=== PATIENT | male | born 1955 | race Caucasian/White ===

== ENCOUNTER 2020-11-26 08:27 | Outpatient (CLI) | payer MEDICARE, SELFPAY ==
--- NOTE | 2020-12-11 22:22 | WPDHOMESLEEP ---
Sleep Study - Home Unattended Date of Study: 11/26/20 Ordering Provider: Dipak Cano MD Interpreting Provider: Lorie Salguero MD Home Sleep Study Type: Apnea Link Air Height: 1.83 m Weight: 95.254 kg Body Mass Index: 28.5 Neck Circumference (inches): 13.75 [place]: 15 Reason for Sleep Study hypersomnolence Sleep History Jayashree Velasquez is a 65 year old man with difficulty falling asleep and staying asleep. He has dreams on most nights. His partner notices that he snores loudly and breathes with his mouth open. He has fatigue during the day. He does not Awaken from sleep feeling short of breath. He occasionally awakens at night with heartburn, belching or coughing. He does not have trouble sleeping with a cold. He does not wake up gasping for breath during the night. He rarely has breathing problems at night observed by others. He does not sweat excessively at night or notices his heart pounding or beating irregularly at night. He frequently falls asleep during the day. He does not fall asleep involuntarily or while driving. He does not fall asleep while exerting physical effort. He does not have loss of muscle tone with strong emotion. He occasionally has daytime difficulties due to excessive sleepiness. He does not feel paralyzed on waking or falling asleep. He does not have vivid dreamlike scenes upon awakening or falling asleep. He does not feel afraid to go to sleep. He does not have nightmares. He occasionally remembers his dreams. He frequently has racing thoughts. He rarely feels sad or depressed. He occasionally feels anxiety. He occasionally has muscular tension. He does not notice parts of his body jerking. He does not kick at night. He does not have crawling or aching feelings in his legs. He does not have any kind of leg pain at night. He does not have morning jaw pain. He frequently grinds his teeth during sleep. He does not bothered by pain during the day. He occasionally has awakened by pain at night. He does not wake up feeling stiff in the morning. He occasionally wakes up with sore achy muscles. He occasionally wakes up with pain in the neck and spine. He has headaches, fatigue and takes antacids regularly. Normal bedtime is 10:30 p.m. falling asleep within a few minutes. Sometimes he wakes during the night and stays awake about 10 minutes. He wakes the morning at 5:00 a.m.. His weekend schedule is the same. He estimates getting 6 hours or sometimes fewer hours of sleep most nights. He takes short naps in the afternoon or evenings. A short nap may be refreshing. HE is drowsy in the morning for 3 hours or longer. He rarely awakens feelinf refreshed. Habits: Never smoked tobacco. Caffeine: 2 cups coffee and 2 cups tea daily. Alcohol: one beer every other day. No recreational drugs. [facility] Past Medical History Medical History Allergic rhinitis due to pollen BMI 29.0-29.9,adult COVID-19 Generalized anxiety disorder Osteoarthritis of left knee Other hyperlipidemia Prediabetes Surgical History Surgical History History of total left knee replacement Hx of right knee surgery arthroscopic, Dr. Issa 2014 Family History Family History Other Carcinoma of colon Diabetes mellitus Family history of allergic disorder Family history of cardiovascular disease Family history of malignant neoplasm Family history of malignant neoplasm of breast Social History Social History Smoking status: Never smoker Alcohol intake: current Alcohol use details: occasional Gender identity (if verbalized by the patient): Male Medications Home Medications Medication Instructions Recorded Confirmed Type atorvastatin 10 mg tablet 10 mg PO DAILY #90 tabl
[2020-12-11 22:41] VITALS: BMI 28.5
== END 2020-11-27 08:19 | disposition home or self-care (01) ==
LOC: ANHCSM 08:28
PROVIDERS: PCP Family Medicine; Visit Provider Family Medicine
DX: G47.33 Obstructive sleep apnea (adult) (pediatric) (principal)
CPT/HCPCS: 95806

== ENCOUNTER 2021-05-20 10:44 | Outpatient (CLI) | payer MEDICARE, SELFPAY ==
--- NOTE | ~2021-05-20 | XR_ITS ---
EXAMINATION: XR chest 2V DATE: 05/20/2021 11:02 INDICATION: Shortness of breath. TECHNIQUE: Frontal and lateral views of the chest were obtained. COMPARISON: None. FINDINGS: The chest demonstrates clear lungs without pneumonia, pleural effusion, or pneumothorax. Th e heart size is normal. IMPRESSION: 1. No acute cardiopulmonary disease. Reviewed, dictated and finalized at location B. TAPE OPERATOR
== END 2021-05-20 10:45 | disposition home or self-care (01) ==
PROVIDERS: PCP Family Medicine; Visit Provider Internal Medicine Critical Care Medicine
DX: R06.02 Shortness of breath (principal)
CPT/HCPCS: 71046

== ENCOUNTER 2021-06-18 07:46 | Outpatient (CLI) | payer MEDICARE, SELFPAY ==
--- NOTE | 2021-06-19 15:50 | WPDPFTINT ---
PFT Procedure Performed PFT Procedure Performed Spirometry with Pre/Post Bronchodilator Plethysmography (Lung Vol) Diffusing Cap (DLCO) Flow Vol Loop PFT Interpretation DOS: REQUESTING: Dr Salguero REASON FOR TESTING: Shortness of breath PULMONARY FUNCTION TESTS Results are reliable and reproducible. Spirometry: FEV1 is 108% predicted before bronchodilator, 3.87L. FVC is 110%. Both are normal values. The slow vital capacity is slightly higher than the forced vital capacity. Using the slow vital capacity to calculate the FEV1%, FEV1 is lower at 68% consistent with airflow obstruction. The QUK53-41% is 103% predicted. After bronchodilator, there is no significant change in FEV1 or FVC. The KHA99-72% increases 53%. Lung volumes: Total lung capacity is 137%, increased, consistent with mild hyperinflation. Residual volume is 183% consistent with severe air trapping. Increased RV/TLC. Airway resistance is normal. Diffusion: DLCO is 111%, normal. Flow volume loop: Normal. There is only one complete flow volume loop and it is of normal configuration. IMPRESSION: Mild obstructive ventilatory pattern with mild hyperinflation and severe air trapping, normal diffusion. There is a excellent response to bronchodilator in the small airways. In the proper clinical scenario, this may represent asthma. Lorie Salguero MD
== END 2021-06-18 07:47 | disposition home or self-care (01) ==
LOC: ANHPFT 07:47
PROVIDERS: PCP Family Medicine; Visit Provider Internal Medicine Critical Care Medicine
DX: R06.02 Shortness of breath (principal); R94.2 Abnormal results of pulmonary function studies
CPT/HCPCS: 94060; 94726; 94729

== ENCOUNTER 2021-09-04 07:31 | Outpatient (CLI) | payer MEDICARE, SELFPAY ==
--- NOTE | 2021-09-10 13:09 | WPDHOMESLEEP ---
Sleep Study - Home Unattended Date of Study: 09/04/21 Ordering Provider: Lorie Salguero MD Interpreting Provider: Aundrea Toney, DO Home Sleep Study Type: Watch RIO Height: 1.83 m Weight: 95.254 kg Body Mass Index: 28.5 Neck Circumference (inches): 16 Armstrong: 9 Reason for Sleep Study The patient has known KRISTINA and is currently using a mandibular advancement device. Sleep History The patient had a home sleep test on November 26, 2020 that showed an AHI of 15. The patient had a mandibular advancement device made by Dr. Gavin and has had less daytime somnolence. The patient occasionally awakens from sleep short of breath. He occasionally awakens at night with heartburn, belching or cough. He occasionally snores loud enough that others complain. He denies waking up gasping for air throughout the night. He rarely has breathing problems at night observed by himself or others. He denies sweating excessively at night. He rarely has heart palpitations or irregular heartbeats during the night. He occasionally falls asleep during the day but never while driving. He denies sleep paralysis and cataplexy. He rarely experiences vivid dreamlike scenes upon awakening or falling asleep. He denies having nightmares. He frequently remembers his dreams. He frequently has thoughts racing through his mind. He rarely feels sad or depressed. He occasionally has anxiety. He rarely has muscular tension. He rarely notices parts of his body jerk. He occasionally kicks during the night. He rarely has crawling and aching feelings in his legs as well as leg pain during the night. He rarely grinds his teeth during sleep and denies awakening with morning jaw pain. He denies being bothered by pain during the day and being awakened by pain during the night. He occasionally wakes up feeling stiff in the morning. He occasionally wakes with sore achy muscles. He occasionally wakes up with pain in the neck, spine or other joints. He goes to bed at 10:30 p.m. on both weekdays and weekends. It takes him 5 minutes to fall asleep. He wakes up 3 times throughout the night for unknown reasons. When he awakens, he would get up and sit in a chair. Says it will take him over an hour to fall asleep at times. He wakes up at 5:00 a.m. on both weekdays and weekends. He typically gets 6 hours of sleep per night. He will stay in bed for a few minutes after waking up in the morning. He currently lives with his . He does not consume any caffeinated beverages within 2 hours of bedtime. He does not engage in physical exercise before bedtime. He will watch television before falling asleep. He will take naps in the afternoon or the evening and they are refreshing. He drinks 2 cups of coffee per day. He will have 1 beer per day. He denies tobacco and recreational drug use. [facility] Past Medical History Medical History Allergic rhinitis due to pollen Asthma BMI 29.0-29.9,adult COVID-19 Generalized anxiety disorder Obstructive sleep apnea Osteoarthritis of left knee Other hyperlipidemia Prediabetes Rhinitis Surgical History Surgical History History of total left knee replacement Hx of right knee surgery arthroscopic, Dr. Issa 2014 Family History Family History Other Carcinoma of colon Diabetes mellitus Family history of allergic disorder Family history of cardiovascular disease Family history of malignant neoplasm Family history of malignant neoplasm of breast Social History Social History Smoking status: Never smoker Alcohol intake: current Alcohol use details: occasional Gender identity (if verbalized by the patient): Male Medications Home Medications Medication Instructions Record
[2021-09-10 13:22] VITALS: BMI 28.5
== END 2021-09-05 14:11 | disposition home or self-care (01) ==
PROVIDERS: Visit Provider Internal Medicine Critical Care Medicine
DX: G47.33 Obstructive sleep apnea (adult) (pediatric) (principal)
CPT/HCPCS: 95800

== ENCOUNTER 2021-12-07 12:37 | Outpatient (CLI) | payer MEDICARE, SELFPAY ==
--- NOTE | ~2021-12-07 | XR_ITS ---
EXAM: XR abdomen/kub 1V DATE: 12/07/2021 12:52 HISTORY: LLQ PAIN X1 WEEK WITH NAUSEA . COMPARISON: None available. FINDINGS: Clear lung bases. Normal bowel gas pattern. No organomegaly. No abnormal abdominal calcifi cation. Degenerative changes in the spine, otherwise the bones and soft tissues normal for age. IMPRESSION: No radiographic evidence of obstruction or ileus. Reviewed, dictated and finalized at location K.
--- NOTE | ~2021-12-07 | CT_ITS ---
EXAMINATION: CT abdomen pelvis wo con DATE: 12/07/2021 13:12 INDICATION: Left lower quadrant abdominal pain. TECHNIQUE: Computed tomography (CT) of the abdomen and pelvis was performed without intravenous contr ast. Automated exposure control and iterative reconstruction technique were employed. The dose-length product was 934.06 mGy-cm. COMPARISON: None. FINDINGS: The visualized portions of the lung bases demonstrate mild atelectasis. No pleural effusion . The heart size is normal. No pericardial effusion. There are coronary artery calcifications. The li hailey and gallbladder are normal. Calcifications in the spleen are consistent with old granulomatous di sease. The pancreas, adrenal glands, and kidneys are normal. There are scattered diverticula in the c olon. There is fat stranding around a diverticulum of the junction of descending and sigmoid colon, c onsistent with diverticulitis. The appendix is normal. There are no dilated loops of bowel. There is an umbilical hernia containing fat. There are no pathologically enlarged lymph nodes. There is no arlette e intraperitoneal fluid. There is severe lumbar spondylosis. IMPRESSION: 1. Diverticulitis of descending/sigmoid colon. No perforation or abscess. Reviewed, dictated and finalized at location A.
== END 2021-12-07 12:38 | disposition home or self-care (01) ==
PROVIDERS: PCP Family Medicine; Visit Provider Nurse Practitioner Adult Health
DX: R10.32 Left lower quadrant pain (principal); K57.32 Diverticulitis of large intestine without perforation or abscess without bleeding
CPT/HCPCS: 74018; 74176

== ENCOUNTER 2023-05-25 09:44 | Outpatient (CLI) | payer MEDICARE, SELFPAY ==
--- NOTE | ~2023-05-25 | XR_ITS ---
Right Hand Technique: PA, oblique, and lateral views were obtained. Clinical History: Pain Findings: No acute fracture or dislocation is seen. Osseous alignment is anatomic. Joint spaces are p reserved. Soft tissues are unremarkable. Impression: Unremarkable right hand. Reviewed, dictated and finalized at location M. RAL FABRICATOR Impression: Unremarkable right hand.
== END 2023-05-25 09:45 | disposition home or self-care (01) ==
PROVIDERS: PCP Family Medicine; Visit Provider Orthopaedic Surgery
DX: M79.641 Pain in right hand (principal)
CPT/HCPCS: 73130

== ENCOUNTER 2023-12-09 09:19 | Outpatient (CLI) | payer MEDICARE, SELFPAY ==
[2023-12-09 20:24] LABS: Basophils Percent Auto 0.7 % (0.2-1.2); Eosinophils Absolute Auto 0.2 K/mm3 (0-0.3); Eosinophils Percent Auto 4.3 % (0-4.4); Hematocrit 41.3 % (42.0-52.0); Hemoglobin 13.7 g/dL (14.0-18.0); Immature Granulocyte Absolute 0.01 K/mm3 (0.00-0.031); Immature Granulocyte Percent A 0.2 % (0-0.5); Lymphocytes Absolute Auto 1.88 K/mm3 (0.9-3.2); Lymphocytes Percent Auto 33.9 % (18.3-44.2); Mean Corpuscular HGB Conc 33.2 g/dl (32-36); Mean Corpuscular Hemoglobin 29.8 pg (26-34); Mean Platelet Volume 9.7 fl (7.4-10.4); Monocytes Absolute Auto 0.3 K/mm3 (0.1-0.6); Monocytes Percent Auto 5.6 % (2.6-8.5); Neutrophils Absolute Auto 3.1 K/mm3 (1.3-6.7); Neutrophils Percent Auto 55.3 % (45.5-73.1); Platelet Count Result 213 k/mm3 (150-375); Red Blood Count 4.59 M/mm3 (4.6-6.20); Red Cell Distribution Width 13.5 % (11.5-14.5); White Blood Count 5.5 K/mm3 (4.5-10.0)
[2023-12-09 20:27] LABS: Alanine Aminotransferase 25 U/L (6-50); Albumin Level 4.5 g/dL (3.5-5.1); Alkaline Phosphatase 57 U/L (38-126); Anion Gap 7 mmol/L (4-12); Aspartate Amino Transferase 47 U/L (17-59); Bilirubin,Total 0.8 mg/dL (0.2-1.3); Blood Urea Nitrogen 25 mg/dL (9-20); Calcium 9.2 mg/dL (8.4-10.2); Carbon Dioxide 32 mmol/L (22-30); Chloride 101 mmol/L (98-107); Cholesterol 193 mg/dL (0-200); Estimated Glomerular Filt Rate > 60; Glucose 99 mg/dL (65-110); HDL Direct 58 mg/dL; Potassium 4.3 mmol/L (3.4-5.0); Sodium 140 mmol/L (137-145); Triglycerides 91 mg/dL (<150)
[2023-12-09 20:39] LABS: LDL Cholesterol Direct 110 mg/dL
[2023-12-09 20:53] LABS: Prostate Specific Antigen 0.9 ng/mL (< OR = 4.0)
[2023-12-09 22:03] LABS: Hemoglobin A1C 5.8 % (<5.7)
[2023-12-13 14:23] LABS: Testosterone Total 262 ng/dL (250-1100)
== END 2023-12-09 09:20 | disposition home or self-care (01) ==
LOC: ANHGOSHLAB 09:21
PROVIDERS: PCP Family Medicine; Visit Provider Nurse Practitioner Family
DX: R53.83 Other fatigue (principal); E78.5 Hyperlipidemia, unspecified; R73.01 Impaired fasting glucose; K21.9 Gastro-esophageal reflux disease without esophagitis; Z12.5 Encounter for screening for malignant neoplasm of prostate; Z68.29 Body mass index [BMI] 29.0-29.9, adult
CPT/HCPCS: 36415; 80053; 80061; 83036; 84153; 84403; 85025; G0103

== ENCOUNTER 2024-01-10 01:04 | Day surgery (SDC) | payer MEDICARE, SELFPAY ==
[2023-12-24 10:16] VITALS: BMI 29.9
[2024-01-10 11:37] VITALS: BP 160/81; PULSE 59; RESP 16; TEMP 36.1; O2SAT 99; BMI 30.4
[2024-01-10] MEDS: LACTATED RINGERS 1,000 ML 150 ML IV CONT (12:15)
--- NOTE | 2024-01-10 12:28 | PM.HPGS ---
History of Present Illness History of Present Illness Consent: Risks, benefits, and alternatives have been discussed and questions answered. Patient agrees to proceed with procedure. Chief complaint: Diverticulitis of intestine part unspecified witho Narrative: Jayashree Velasquez is a 68 year old male here for egd and colonoscopy, last 2016. Recently with more gerd- pepcid is helping, also h/o diverticulitis Review of Systems Review of Systems: All systems reviewed & are unremarkable except as noted in HPI and below PMFSH Past Medical History Medical History (Updated 01/10/24 @ 12:32 by Steve Jackson MD) Allergic rhinitis due to pollen BMI 29.0-29.9,adult Colon cancer screening COVID-19 Obstructive sleep apnea Osteoarthritis of left knee Other hyperlipidemia Rhinitis Surgical History Surgical History History of total left knee replacement Hx of right knee surgery arthroscopic, Dr. Issa 2014 Family History Family History Other Carcinoma of colon Diabetes mellitus Family history of allergic disorder Family history of cardiovascular disease Family history of malignant neoplasm Family history of malignant neoplasm of breast Social History Social History Smoking status: Never smoker Alcohol intake: current Drinks per week: 2 Alcohol use details: occasional Substance use type: does not use Do You Feel Safe in your Home?: Yes Lack of Transportation: No Lack of Food: Never True Current Housing: I Have Housing Concerned About Future Housing: No Difficulty Paying Gas/Electric Bills: No Difficulty Paying for Meds: No Currently Unemployed: No Education: Master's Degree or Higher Difficulty w/ Childcare or Family Care: No Living arrangements: with family Occupation/Education: retired Gender identity (if verbalized by the patient): Male Spiritual care concerns: No Meds Home Medications and Allergies Home Medications Medication Instructions Recorded Confirmed Type atorvastatin 20 mg tablet 20 mg PO QHS #90 tabs 10/22/23 01/10/24 Rx celecoxib 200 mg capsule (Celebrex) 200 mg PO DAILY PRN pain #90 caps 12/17/23 01/10/24 Rx dicyclomine 10 mg capsule 10 mg PO QID PRN abdominal pain 12/17/23 01/10/24 Rx #60 caps Allergies Allergy/AdvReac Type Severity Reaction Status Date / Time No Known Allergies Allergy Unknown Verified 01/10/24 11:47 Vital Signs Vital Signs - 24 hr 01/10/24 11:37 Temperature 97.0 F L Pulse Rate 59 L Respiratory Rate 16 Blood Pressure 160/81 H Pulse Oximetry 99 Oxygen Delivery Room Air Exam Const: General: comfortable and no acute distress HENMT: Face/Nose/Sinus: Normal nares present Eyes: General: appearance normal, both eyes and all related structures Neck: Neck: no JVD Resp: Auscultation: clear to auscultation bilaterally Cardio: Rate: regular rate Rhythm: regular rhythm GI: Inspection: non-distended GI Palp: Yes Soft to palpation Skin: General skin exam: normal color Neuro: General: gait normal Speech: normal speech Extrem: General: normal to inspection Psych: Mental Status: mental status grossly normal Assessment and Plan Assessment and plan (1) GERD (gastroesophageal reflux disease): Code(s): K21.9 - Gastro-esophageal reflux disease without esophagitis Status: Acute Assessment and Plan: egd (2) Colon cancer screening: Code(s): Z12.11 - Encounter for screening for malignant neoplasm of colon Status: Acute Assessment and Plan: colonoscopy
--- NOTE | 2024-01-10 12:40 | SUR.OPER ---
EGD [id number]. Colonoscopy start time 1244.
[2024-01-10 12:57] VITALS: BP 118/69; PULSE 49; RESP 18
[2024-01-10 13:07] VITALS: BP 120/75; PULSE 69; RESP 18
[2024-01-10 13:18] VITALS: BP 137/69; PULSE 60; RESP 19
--- NOTE | 2024-01-17 08:51 | WPDANESEPPF ---
Anes - Initial Pre Proc Eval Procedure: Operation Date: 01/10/24 13:00 Proposed Procedures p Esophagogastroduodenoscopy & Colonoscopy - Steve Jackson MD Date/Time: 01/17/24 08:51 Surgeon: Steve Jackson MD Pre Op Diagnosis: Diverticulitis of intestine part unspecified witho Patient Data Age: 68 Gender: M Height: 1.83 m Weight: 101.6 kg Last Vital Signs Temp 97.0 F L 01/10/24 11:37 Pulse 60 01/10/24 13:18 Resp 19 01/10/24 13:18 BP 137/69 01/10/24 13:18 Pulse Ox 99 01/10/24 11:37 O2 Del Method Room Air 01/10/24 13:18 Allergies Allergy/AdvReac Type Severity Reaction Status Date / Time No Known Allergies Allergy Unknown Verified 01/10/24 11:47 Home Medications Medication Instructions Recorded Confirmed Type atorvastatin 20 mg tablet 20 mg PO QHS #90 tabs 10/22/23 01/10/24 Rx celecoxib 200 mg capsule (Celebrex) 200 mg PO DAILY PRN pain #90 caps 12/17/23 01/10/24 Rx dicyclomine 10 mg capsule 10 mg PO QID PRN abdominal pain 12/17/23 01/10/24 Rx #60 caps esomeprazole magnesium 40 mg 40 mg PO Q24H #30 caps 01/10/24 01/10/24 Rx capsule,delayed release (Nexium) Patient hx anesthesia problems: none Family hx anesthesia problems: none Results Review: All pre-operative results and documents have been reviewed as part of the pre-operative evaluation. [facility] Past Medical History Medical History (Updated 01/12/24 @ 13:02 by Dipak Cano MD) Allergic rhinitis due to pollen BMI 29.0-29.9,adult Colon cancer screening COVID-19 Obstructive sleep apnea Osteoarthritis of left knee Other hyperlipidemia Rhinitis Surgical History Surgical History History of total left knee replacement Hx of right knee surgery arthroscopic, Dr. Issa 2014 Family History Family History Other Carcinoma of colon Diabetes mellitus Family history of allergic disorder Family history of cardiovascular disease Family history of malignant neoplasm Family history of malignant neoplasm of breast Social History Social History Smoking status: Never smoker Alcohol intake: current Drinks per week: 2 Alcohol use details: occasional Substance use type: does not use Do You Feel Safe in your Home?: Yes Lack of Transportation: No Lack of Food: Never True Current Housing: I Have Housing Concerned About Future Housing: No Difficulty Paying Gas/Electric Bills: No Difficulty Paying for Meds: No Currently Unemployed: No Education: Master's Degree or Higher Difficulty w/ Childcare or Family Care: No Living arrangements: with family Occupation/Education: retired Gender identity (if verbalized by the patient): Male Spiritual care concerns: No Anes - Eval Final PreProcedure Day of Procedure 01/17/24 08:51 Patient weight: obese Heart: regular rate and rhythm Lungs: clear to auscultation Airway: Mallampati scale class II Neurological: alert and oriented Last oral intake: >/= 8 hours ASA classification: II Emergent: no Anesthetic plan: proceed Anesthesia type and monitoring: general GIVS and standard monitoring Results Review: All pre-operative results and documents have been reviewed as part of the pre-operative evaluation. Informed Consent: The patient's anesthetic plan and its attendant risks and benefits were discussed with the patient/family/POA. Questions were solicited and answers provided to the satisfaction of the patient/family/POA.
== END 2024-01-10 13:27 | disposition home or self-care (01) ==
PROVIDERS: PCP Family Medicine; Referring Provider Nurse Practitioner Family; Visit Provider Internal Medicine Gastroenterology
PROC: 0DJ08ZZ Inspection of Upper Intestinal Tract, Via Natural or Artificial Opening Endoscopic (ICD-10-PCS; CPT 43235; principal; 2024-01-10 13:00)
DX: Z12.11 Encounter for screening for malignant neoplasm of colon (principal); D12.3 Benign neoplasm of transverse colon; K64.8 Other hemorrhoids; K57.30 Diverticulosis of large intestine without perforation or abscess without bleeding; K29.50 Unspecified chronic gastritis without bleeding; K21.9 Gastro-esophageal reflux disease without esophagitis; E78.49 Other hyperlipidemia; G47.33 Obstructive sleep apnea (adult) (pediatric); Z79.1 Long term (current) use of non-steroidal anti-inflammatories (NSAID); Z98.890 Other specified postprocedural states; Z80.0 Family history of malignant neoplasm of digestive organs; Z80.3 Family history of malignant neoplasm of breast; Z82.49 Family history of ischemic heart disease and other diseases of the circulatory system
CPT/HCPCS: 43239; 45385; 88305; J2704; J7120

== ENCOUNTER 2024-06-21 11:23 | Outpatient (CLI) | payer MEDICARE, SELFPAY ==
--- NOTE | ~2024-06-21 | XR_ITS ---
EXAMINATION: XR lumbar spine min 4V DATE: 06/21/2024 11:47 INDICATION: Chronic low back pain radiating to the legs. TECHNIQUE: 5 views of lumbar spine including standing views were obtained. COMPARISON: None. FINDINGS: There is 10 degrees dextroscoliosis of thoracolumbar spine. Vertebral body heights are norm al. There is mildly decreased disc height at L1-L2, severely decreased disc height at L2-L3, mildly d ecreased disc height at L3-L4, and severely decreased disc height at L4-L5 and L5-S1. There is multil evel severe facet joint osteoarthritis IMPRESSION: 1. Severe lumbar spondylosis. 2. Thoracolumbar dextrosclerosis. Reviewed, dictated and finalized at location A. BATTALION CHIEF
== END 2024-06-21 11:24 | disposition home or self-care (01) ==
PROVIDERS: Visit Provider Family Medicine
DX: M47.816 Spondylosis without myelopathy or radiculopathy, lumbar region (principal); M41.35 Thoracogenic scoliosis, thoracolumbar region; M54.30 Sciatica, unspecified side
CPT/HCPCS: 72110

== ENCOUNTER 2024-11-15 13:20 | Outpatient (CLI) | payer MEDICARE, SELFPAY ==
--- NOTE | 2024-11-15 13:00 | NEURO_ITS ---
Impression: # Complains of increasing numbness of feet ? # Neuropathy with superimposed possibility of Radiculopathy ? # Needle/EMG exam revealed neurogenic changes with more advanced in left lower extremity ? # Clinical correlation recommended. Higher involvement needs to be ruled out Nerve Conduction Studies Anti Sensory Summary Table ?Stim Site NR Peak (ms) P-T Amp (?V) Site1 Site2 Delta-P (ms) Dist (cm) Jeff (m/s) Left Sup Fibular Anti Sensory (Ant Lat Mall) 14 cm ? 4.0 11.7 14 cm Ant Lat Mall 4.0 16.0 40 Right Sup Fibular Anti Sensory (Ant Lat Mall) 14 cm ? 3.4 5.4 14 cm Ant Lat Mall 3.4 16.0 47 Left Sural Anti Sensory (Lat Mall) Calf ? 3.8 7.7 Calf Lat Mall 3.8 16.0 42 Right Sural Anti Sensory (Lat Mall) Calf ? 3.1 10.8 Calf Lat Mall 3.1 16.0 52 Motor Summary Table ?Stim Site NR Onset (ms) O-P Amp (mV) Site1 Site2 Delta-0 (ms) Dist (cm) Jeff (m/s) Left Peroneal Motor (Vastus Med) Ankle ? 5.3 0.4 Popit Ankle 9.9 43.0 43 Popit ? 15.2 1.2 Right Peroneal Motor (Vastus Med) Ankle ? 3.4 0.5 Popit Ankle 9.3 41.0 44 Popit ? 12.7 0.3 Left Tibial Motor (Abd Ayala Brev) Ankle ? 5.1 5.7 Knee Ankle 10.2 43.0 42 Knee ? 15.3 1.7 Right Tibial Motor (Abd Ayala Brev) Ankle ? 4.5 1.6 Knee Ankle 10.2 43.0 42 Knee ? 14.7 0.7 F Wave Studies ?NR F-Lat (ms) L-R F-Lat (ms) Left Peroneal (Mrkrs) (EDB)??? NO RESPONSE NR Right Peroneal (Mrkrs) (EDB) ? 76.14 Left Tibial (Mrkrs) (Abd Hallucis) ? 64.06 1.44 Right Tibial (Mrkrs) (Abd Hallucis) ? 65.50 1.44 EMG ?Side Muscle Nerve Root Ins Act Fibs Amp Dur Recrt Comment Right AntTibialis Dp Br Fibular L4-5 Nml Nml Nml Nml +1 Right Gastroc Tibial S1-2 Nml Nml Nml Nml +1 Right Fibularis Long Sup Br Fibular L5-S1 Nml Nml Nml Nml +1 Right Flex Dig Long Tibial L5-S2 Nml Nml Nml Nml +1 Right Ext Dig Brev Dp Br Fibular L5, S1 Nml Nml Nml Nml +1 Right QuadratusFem QuadFemoris L4-5, S1 Nml Nml Nml Nml +1 Left AntTibialis Dp Br Fibular L4-5 Nml Nml Nml Nml +1 Left Gastroc Tibial S1-2 Nml Nml Nml Nml +1 Left Fibularis Long Sup Br Fibular L5-S1 Nml Nml Nml Nml +1 Left Flex Dig Long Tibial L5-S2 Nml Nml Nml Nml +1 Left Ext Dig Brev Dp Br Fibular L5, S1 Nml Nml Nml Nml +1 Left QuadratusFem QuadFemoris L4-5, S1 Nml Nml Nml Nml +1
== END 2024-11-15 13:21 | disposition home or self-care (01) ==
LOC: ANHNEURO 13:22
PROVIDERS: PCP Family Medicine; Visit Provider Podiatrist Foot & Ankle Surgery
DX: G57.93 Unspecified mononeuropathy of bilateral lower limbs (principal); G60.8 Other hereditary and idiopathic neuropathies
CPT/HCPCS: 95886; 95910

== ENCOUNTER 2024-12-22 08:13 | Outpatient (CLI) | payer MEDICARE, SELFPAY ==
--- OUTSIDE RECORDS SUMMARY | 2024-12-22 08:16 | XMS_ITS | Encounter Summary ---
Author Organization [facility] Address [address] [place] [address] Care Team Providers Care Lifter/Driver Name Role Phone Unavailable Primary Care Provider Unavailabl e Encounter Details Date Type Department Care Team (Late st Contact Info) Description 05/04/2000 Outpatient Historical [facility] Shiva Arceo MD Social History Tobacco Use Types Packs/Day Years Used Date Smoking Tobacco: Never Assessed Sex and Gender Information Value Date Recorded Sex Assigned at Not on file Legal Sex Male 4:19 AM PRE CODER Gender Identity Not on file Sexual Orientation Not on file documented as of this encounter Plan of Treatment Not on file documented as of this encounter Visit Diagnoses Not on filedocumented in this encounter
--- OUTSIDE RECORDS SUMMARY | 2024-12-22 08:16 | XMS_ITS | Continuity of Care Document ---
Author Organization [facility] Address [address] [place] [address] Phone Care Team Providers Care Hand Splitter Name Role Phone Bigg EDWARD MD, Davidson Unavailable Unavaila ble Allergies, Adverse Reactions, Alerts Substance Reaction Status Criticality No Known Allergies Active No Inform ation Medications Medication Instructions Dosage Effective Dates (start - stop) Status Comments amoxicillin 500 mg tablet take 4 tablet by oral route 2 hours prior to dental appointment - Active Lipitor 10 mg tablet - Active Procedures Procedure Date X-ray exam knee, 3 views X-ray exam knee, 3 views Office/outpatient visit,est, mod 2020 Global/Postop followup visit Office/outpatient visit,est, mod 2020 X-ray exam knee, 3 views Global/Postop followup visit X-ray exam knee, 3 views Global/Postop followup visit Walker folding wheeled w/o s X-ray exam knee, 3 views Global/Postop followup visit Office/outpatient visit,est, mod 2019 Office/outpatient visit,new, mod 2019 Advance Directives Directive Yes / No Effective Date File Name No Information Encounters Encounter Description Practice Location Reason(s) For Visit Diagnoses Date Provider Providers Copied on Encounter [facility], [address], [place], [place], [id number], [place] [phone] [facility] No Information 4 Bigg peck. [address] [facility] [address], [place], [place], [id number] , [place]. tel: [phone] [facility], [address] [address], [place], [place], [address], [place] tel:[phone] [facility] No Information 0 2 Gertrude Scott. [address] [facility], [facility] [address], [place], [place], [address] , [place]. tel: [phone] Office/outpa [place]ient visit,est, [facility], [address] [address], [place], [place], [address], [place] [phone] [facility] Bilateral knee (chief complaint) Presence of left artificial knee jointPresence of right artificial knee joint 1 Gertrude Scott. [address] [facility] [address], [place], [place], [id number] , [place]. tel: [phone] Referring Provider: Tyler Lai, [address] [facility] [address] [facility], [place], [address]. [phone] Office/outpa tient visit,est, [facility], [address] [address], [place], [place], [id number], [place] tel:[phone] [facility] bilat knees (chief complaint) Presence of left artificial knee jointPresence of right artificial knee joint 1 Gertrude Scott. [address] [facility], [address] [address], [place], [place], [address] , [place]. tel: [phone] Referring Provider: Tyler Lai, [address] [facility] [address] [facility], [place], [address]. tel:[phone] [facility], [address] [address], [place], [place], [address], [place] [phone] [facility] Right Knee (chief complaint) Presence of right artificial knee joint 1 Gertrude Scott. [address] [facility], [address] [facility], [place], [place], [address] , [place]. tel: [phone] Referring Provider: Tyler Lai, [address] [facility], [place], [address]. tel:[phone] [facility], [address] [facility] [address], [place], [place], [address], [place] [phone] [facility] Presence of left artificial knee joint 1 Bigg peck. [address] [facility], [address] [facility], [place], [place], [address] , [place]. tel: [phone] Referring Provider: Davidson Mansfield, [address] [facility] [address] [facility], [place], [address]. tel:[phone] [facility], [address] [facility] [address], [place], [place], [address], [place] [phone] [facility] Presence of left artificial knee jointPresence of right artificial knee joint 1 Bigg peck. [address] [facility], [address], [place], [place], [address] , [place]. tel: [phone] [facility], [address] [address], [place], [place], [address], [place] [phone] [facility] Left knee (chief complaint) Presence of left artificial knee joint 1 Gertrude Scott. [address] [facility], [address], [place], [place], [address] , [place]. tel: [phone] Referring Provider: Tyler Lai, [address] [facility] [address], [place], [address]. tel:[phone] [facility], [address] [address], [place], [place], [address], [place] tel:[phone] [facility] Presence of left artificial knee joint 0 Bigg Garcia er. [address] [facility], [address] [address], [place], [place], [address] , [place]. tel: [phone] [facility], [address] [address], [place], [place], [address], [place] [phone] [facility] Unilateral primary osteoarthritis, right knee 0 Bigg Garcia er. [address] [facility], [place], [place], [address] , [place]. tel: [phone] [facility], [address] [address], [place], [place], [address], [place] tel:[phone] [facility] Presence of left artificial knee joint 0 Loredoben Scott. [address] [facility], [address] [address], [place], [place], [address] , [place]. tel: [phone] Office/outpa tient visit,est, [facility], [address] [address], [place], [place], [address], [place] [phone] [facility] Left Knee (chief complaint) Unilateral primary osteoarthritis, left knee 0 Bigg Garcia er. [address] [facility], [address] [address], [place], [place], [address] , [place]. tel: [phone] Referring Provider: Davidson Mansfield, [address] [facility] [address] [facility], [place], [address]. [phone] [facility], [address], [id number], [place] [phone] [facility] Unilateral primary osteoarthritis, left knee 0 Bigg peck. [address] [facility], [address] [address], [place], [place], [address] , [place]. tel: [phone] Office/outpa tient visit,new, [facility], [address], [place], [place], [address], [place] tel:[phone] [facility] Left Knee (chief complaint) Pain in left kneeUnilateral primary osteoarthritis, left knee 0 Bigg peck. [address], [place], [place], [address] , [place]. tel: [phone] Family History Family Member Type Diagnosis Age At Onset Father Problem (finding) Osteoarthritis Mother Problem (finding) Heart Disease Sister Problem (finding) Cancer, unknown Mother Problem (finding) Osteoarthritis Brother Problem (finding) Osteoarthritis Payers Payer name Insurance type Covered libertarian ID Authoriza tion(s) Medicare [place] W[place] Part B MB [id number] [facility] [id number] Social History Type Description Quantity Date Captured Comments Alcohol Use Details Unknown Caffeine Use Details Unknown Tobacco Use Status No Information Smoking Status No Information Sex Male Chief Complaint And Reason For Visit No Information Reason For Referral Reason For Referral No Information Plan Of Treatment Date Type Action Status Referral Ordered: X-ray exam knee, 3 views LT knee ordered Referral Ordered: X-ray exam knee, 3 views Bilateral knee ordered Referral Ordered: X-ray exam knee, 3 views RT knee ordered Referral Ordered: X-ray exam knee, 3 views LT ordered History Of Present Illness Encounter Date Complaint History Of Prese nt Illness Bilateral knee Jayashree is a pl easant 66-year-old male who presents to the office today for 1 year evaluation of his bilateral total knee arthroplasties. He is status post left total knee arthroplasty, date of surgery 05/07/2020, and right total knee arthroplasty, date of surgery 06/18/2020. He indicates he has resumed all presurgical activities with no difficulty or restriction. He does go to the gym on a regular basis, indicating he is in the gym 4-5 days per week with performance of cardiovascular exercises as well as strengthening exercises. He still feels like he is in the healing process. He endorses very mild very intermittent pain worsened with excessive exercise or difficulty exercise regimen. Pain is well-managed with the use of compression sleeves during exercise activities. He indicates he has participated in dental care, and has used an antibiotic prior to any dental visits. Denies injury, trauma, or fall since last office visit. Denies fever, chills, generalized feelings of illness or malaise. He is ambulating without assistive device at today's office visit. megan Blanc is a pl easant 65-year-old gentleman who presents to the office today for ongoing postoperative evaluation of his bilateral total knee arthroplasties. He is status post right total knee arthroplasty, date of surgery 06/18/2020, and a left total knee arthroplasty, date of surgery 05/07/2020. He is no longer participating in physical therapy, but does the exercises on a regular basis. He indicates some concern over residual swelling in the bilateral knees, and his inability to obtain a good night sleep due to tightness. He endorses very mild intermittent medial compartment pain of the right knee that is worsened with increases to his activity levels. Pain is managed with the use of ice. Patient is ambulating without assistive device at today's office visit. Right Knee Jayashree Whitmore is a pleasant 65 year old male who presents to the office today for initial post operative evaluation of his right total knee arthroplasty, date of surgery 06/18/2020. He indicates compliance with the use of aspirin 81mg twice per day for DVT prophylaxis. He is participating in physical therapy, and feels that it is going very well. He endorses pain, diffusely located in the right knee that is worsened with sitting for extended periods of time, and with overexertion. Pain is moderate and constant. Pain is managed with the use of Hydrocodone, rest, ice, and elevation. Haim is ambulating without assistive device at today's visit. Left knee Dominguez Whitmore i s a pleasant 65-year-old gentleman who presents to the office today for initial postop evaluation of his left total knee arthroplasty, date of surgery 04/27/2020. He indicates compliance with the use of aspirin twice a day for DVT prophylaxis. He is participating in physical therapy and feels that it is going very well. He endorses mild intermittent pain, diffusely located in the knee, that is rated at a 2 out of 10 at today's visit with an aching intermittent nature, that will increase to a 5 out of 10 at night and after physical therapy, and with sitting for an extended period of time. Pain is well-managed with the use of Tylenol, heat, rest, and elevation. Patient is ambulating without assistive device at today's office visit. Left Knee Left Knee Vikram is a [facility] 64-year-[facility] gentleman, he is 6 foot tall and weighs 210 pounds. He has had significant knee pain for several years but is becoming progressively more intense. He rates his pain as an 8 out of 10 it is sharp and stabbing his pain is associated with decreased motion, limping, stiffness, swelling, tenderness. His pain is worse with sitting standing and walking. His pain is improved with bracing elevation heat ice prescription medication resting and stretching. He has seen Dr. Brownlee at the [facility] and has had multiple stem cell injections as well as cortisone injections. He states that one week ago he received a cortisone injection which gave him minimal relief. He has had stem cell injections which gave him some relief but have subsequently lost effect. He is a non-smoker. 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 He also uses meloxicam 15 mg daily.Radiographs from [facility] are reviewed; these demonstrate bilateral end-stage osteoarthritis of the medial compartment with [id number] articulation. There are osteophytes present on the medial femur and tibia bilaterally. There is bilateral varus deformity. There is significant patellofemoral osteoarthritis present on the right.. Impression end-stage osteoarthritis bilaterally with varus deformity. Functional Status Date Functional Assessmen t No Information Instructions Date Instruction Additional Infor mation After discussing the risks benefits and alternatives to treatment. Risks include DVT, PE, infection, persistent pain, swelling and stiffness, damage to nerves and arteries, Additional, medical complications related to surgery including constipation, pneumonia, urinary retention, and other issues. The patient understands all this and wishes to proceed with knee arthroplasty. We discussed the hospital course, the postoperative rehabilitation protocol including aggressive outpatient physical therapy. We discussed that if physical therapy is not optimized the patient could develop stiffness of the knee leading to suboptimal outcomes. We also discussed DVT prophylaxis this includes aspirin and PAS active care compression devices unless the patient specifically has an increased risk of DVT. Appropriate preoperative radiographs were obtained for templating purposes. All questions were answered wrist and benefits explained the patient wishes to proceed with total knee arthroplasty. We will proceed with outpatient total knee arthroplasty in March. This will be 90 days after his most recent injection. Related to Unilateral primary osteoarthritis, left knee Assessments Type Assessment Date No Information Patient Care Teams Name Effective Dates (start - stop) Status Members No Information
--- OUTSIDE RECORDS SUMMARY | 2024-12-22 08:16 | XMS_ITS | Clinical Summary ---
Author Organization [facility] Address [facility] [place] [address] Care Team Providers Care Operating Room Technologist Name Role Phone Unavailable Primary Care Provider Unavailabl e Social History Tobacco Use Types Packs/Day Years Used Date Smoking Tobacco: Never Assessed Sex and Gender Information Value Date Recorded Sex Assigned at Not on file Legal Sex Male 5:23 PM CDT Gender Identity Not on file Sexual Orientation Not on file Plan of Treatment Health Maintenance Due Date Last Done Comments Colorectal Cancer Screening Colonoscopy (10 Years) 1955 Hepatitis C 1973 DTaP, Tdap and Td Vaccines ( 1 - Tdap) 1974 Pneumococcal Vaccine: 50+ Ye ars (1 of 1 - PCV) 2005 Zoster Vaccines (1 of 2) 2005 COVID-19 Vaccine ( - 2023-2 5 season) 2024 RSV Immunization or 60+ Years (1 - 1-dose 75+ series) 2030 Meningococcal B Vaccine Aged Out No l onger eligible based on patient's age to complete this topic Meningococcal Vaccine Aged Out No colt brandon eligible based on patient's age to complete this topic RSV Immunizations Under 20 Months Aged Out No longer eligible based on patient's age to complete this topic
--- OUTSIDE RECORDS SUMMARY | 2024-12-22 08:16 | XMS_ITS | Continuity of Care Document ---
Author Organization [facility] Address [address] [place] [address] [address] [address] [place] [address] Phone Care Team Providers Care Inspector Golf Ball Name Role Phone Caruso OD, Navdeep Unavailable Unavailable Procedures Procedure Date Eye Exam & Treatment Refraction Advance Directives Directive Yes / No Effective Date File Name No Information Encounters Encounter Description Practice Location Reason(s) For Visit Diagnoses Date Provider Providers Copied on Encounter [facility], [address] [place] [address] [address], [place], [place], [address], [place] tel:[phone] [facility] [place] No Information [phone] Caruso OD Navdeep. [address], [place], [address], [place]. tel:[phone] Family History Family Member Type Diagnosis Age At Onset No Information Payers Payer name Insurance type Covered democrat ID Authoriza timakenna(s) [facility] Commercial CI [id number] Social History Type Description Quantity Date Captured Comments Sex Male Smoking Status No Information Chief Complaint And Reason For Visit No Information Reason For Referral Reason For Referral No Information History Of Present Illness Encounter Date Complaint History Of Prese nt Illness No Information Functional Status Date Functional Assessmen t No Information Instructions Date Instruction Additional Infor mation No Information Assessments Type Assessment Date No Information Patient Care Teams Name Effective Dates (start - stop) Status Members No Information
--- OUTSIDE RECORDS SUMMARY | 2024-12-22 08:16 | XMS_ITS | Encounter Summary ---
Author Organization [facility] Address 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
--- OUTSIDE RECORDS SUMMARY | 2024-12-22 08:16 | XMS_ITS | Encounter Summary ---
Author Organization [facility] Address 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
--- OUTSIDE RECORDS SUMMARY | 2024-12-22 08:16 | XMS_ITS | Clinical Summary ---
Author Organization [facility] [address] Address [address] [place] [address] Care Team Providers Care Twisting Department End Finder Name Role Phone Dipak Cano MD Primary Care Provider [phone] Allergies No known active allergies Medications KRILL OIL ORAL Take by mouth A ctive albuterol HFA (PROVENTIL HFA,VENTOLIN HFA,PROAIR HFA) 90 mcg/actuation inhaler Inhale 2 puffs every 6 (six) hours as needed for wheezing Active cholecalciferol , vitamin D3, (VITAMIN D3 ORAL) Take by mouth Active diphenhydramine HCl (BENADRYL ALLERGY ORAL) Take by mouth Ac tive amoxicillin (AMOXIL) 500 mg tablet/capsule take 4 tablet by oral route 2 hours prior to dental appointment 2 Active atorvastatin (LIPITOR) 20 mg tablet Take 1 tablet (20 mg total) by mouth nightly 3 Active Active Problems Problem Noted Date Diagnosed Date Obesity (BMI 35.0-39.9 without comorbidity) 05/2024 History of myocarditis 05/06/2021 Systolic ejection murmur 05/06/2021 KRISTINA (obstructive sleep apnea) 05/06/2021 Hyperlipidemia LDL goal <100 05/06/2021 Essential hypertension 05/06/2021 Post covid-19 condition, unspecified 05/06/2021 Other forms of dyspnea 05/06/2021 Surgical History Surgery Date Site/Laterality Comments TOTAL KNEE ARTHROPLASTY Medical History Medical History Date Comments Hyperlipidemia Anxiety Arthritis Social History Tobacco Use Types Packs/Day Years Used Date Smoking Tobacco: Never Smokeless Tobacco: Never Tobacco Cessation:Counseling Given: Not Answered Sex and Gender Information Value Date Recorded Sex Assigned at Not on file Legal Sex Male 1:57 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 Gender Identity Not on file Sexual Orientation Not on file Obstetrics History Last Filed Vital Signs Vital Sign Reading Time Taken Comments Blood Pressure 120/80 08/22/2024 8:31 AM CDT Pulse 82 08/22/2024 7:51 AM CDT Temperature - - Respiratory Rate 18 05/06/2021 10:1 6 AM HEAD 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 Oxygen Saturation 96% 08/22/2024 7:51 AM CDT Inhaled Oxygen Concentration - - Weight 106.1 kg (233 lb 12.8 oz) 08/22/2024 7:51 AM CDT Height 167.6 cm (5' 6) 08/22/2024 7:51 AM CDT Body Mass Index 37.74 08/22/2024 7:51 AM CDT Plan of Treatment Health Maintenance Due Date Last Done Comments Colon Cancer Screening-Colonoscopy 1955 Depression Screening 1955 Fall Risk Assessment 1955 Hepatitis C Screening 1955 Prostate Cancer Screening-PSA 1955 DTaP/Tdap/Td Vaccine (1 - Tdap) 1966 Hepatitis B Screening 1973 Pneumococcal vaccine 65+ (1 of 1 - PCV) 2005 Zoster Vaccine (1 of 2) 2005 Well Visit 65+ 02/16/2020 Covid-19 Vaccine (3 - season) 2024, 09/24/2020 Influenza Vaccine (#1) 2025 Insurance [facility]IC[facility] Care Teams Twisting Department End Finder Relationship Specialty Start Date End Date Dipak Cano MD [address] [place] [address] [place] [address] PCP - General Family Medicine 08/26/23
--- OUTSIDE RECORDS SUMMARY | 2024-12-22 08:16 | XMS_ITS | Clinical Summary ---
Author Organization 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
--- OUTSIDE RECORDS SUMMARY | 2024-12-22 08:16 | XMS_ITS | Patient Health Record ---
Author Organization [facility] Address [address] [place], [place] [id number] Care Team Providers Care Chief Dispatcher Name Role Phone Dipak Cano Unavailable Unavailable Reason For Referral No Information Plan Of Treatment No Information Insurance Providers Payer Name Payer Address Payer Phone Subscriber Number Group Number Insured Name Patient Relationship to Insured Coverage Start Date Coverage End Date Medicare Part [place] [address] [facility] [address] [id number] MARIBEL SAUCEDO Self - patient is the insured [facility] [address] [address] [place], [place] [id number] MARIBEL SAUCEDO Self - patient is the insured
--- OUTSIDE RECORDS SUMMARY | 2024-12-22 08:16 | XMS_ITS | Referral Summary ---
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ARE [facility] Care Teams Hand Binder Stripper Relationship Specialty Start Date End Date Dipak Cano MD [address] [place] [address] [address] PCP - General Family Medicine 08/26/23
--- OUTSIDE RECORDS SUMMARY | 2024-12-22 08:16 | XMS_ITS | Encounter Summary ---
Author Organization [facility] Address 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
[2024-12-22 14:45] LABS: Hematocrit 40.1 % (42.0-52.0); Hemoglobin 12.9 g/dL (14.0-18.0); Immature Granulocyte Percent A 0.4 % (0-0.5); Lymphocytes Absolute Auto 1.83 K/mm3 (0.9-3.2); Mean Corpuscular HGB Conc 32.2 g/dl (32-36); Mean Corpuscular Hemoglobin 29.1 pg (26-34); Mean Corpuscular Volume 90.5 fl (80-100); Nucleated Red Blood Cells Absolute Auto 0.000 K/mm3 (0.0-0.012); Nucleated Red Blood Cells Perc 0.0 % (0.0-0.2); Platelet Count Result 191 k/mm3 (150-375); Red Blood Count 4.43 M/mm3 (4.6-6.20); White Blood Count 5.7 K/mm3 (4.5-10.0)
[2024-12-22 15:10] LABS: Hemoglobin A1C 5.6 % (<5.7)
[2024-12-22 15:25] LABS: Alanine Aminotransferase 20 U/L (6-50); Albumin Level 4.4 g/dL (3.5-5.1); Alkaline Phosphatase 58 U/L (38-126); Anion Gap 8 mmol/L (4-12); Aspartate Amino Transferase 53 U/L (17-59); Bilirubin,Total 1.1 mg/dL (0.2-1.3); Blood Urea Nitrogen 21 mg/dL (9-20); Calcium 9.2 mg/dL (8.4-10.2); Carbon Dioxide 26 mmol/L (22-30); Chloride 101 mmol/L (98-107); Cholesterol 191 mg/dL (0-200); Estimated Glomerular Filt Rate > 60; Glucose 98 mg/dL (65-110); HDL Direct 54 mg/dL; Potassium 3.4 mmol/L (3.4-5.0); Sodium 135 mmol/L (137-145); Total Protein 7.5 g/dL (6.3-8.2); Triglycerides 83 mg/dL (<150)
[2024-12-22 16:10] LABS: Prostate Specific Antigen 0.9 ng/mL (< OR = 4.0)
[2024-12-28 18:08] LABS: Testosterone, Total, LC/MS 273 ng/dL (.)
== END 2024-12-22 08:14 | disposition home or self-care (01) ==
LOC: ANHGOSHLAB 08:14
PROVIDERS: PCP Family Medicine; Visit Provider Family Medicine
DX: K21.9 Gastro-esophageal reflux disease without esophagitis (principal); Z68.29 Body mass index [BMI] 29.0-29.9, adult; R73.01 Impaired fasting glucose; E78.5 Hyperlipidemia, unspecified; R53.83 Other fatigue; Z12.5 Encounter for screening for malignant neoplasm of prostate
CPT/HCPCS: 36415; 80053; 80061; 83036; 84153; 84403; 85025; G0103

== ENCOUNTER 2025-01-12 10:04 | Outpatient (CLI) | payer MEDICARE, SELFPAY ==
--- NOTE | ~2025-01-12 | MR_ITS ---
MRI of the lumbar spine Clinical History: Stenosis Technique: Axial T2-weighted images, and sagittal T1-weighted, T2-weighted, and and T2 fat-sat images were acquired. Findings: There is no fracture of the lumbar spine. There is 2 mm retrolisthesis of L2 over L3. There are reactive marrow signal changes about multiple disc spaces due to underlying degenerative disc disease. At L1-L2, there is mild to moderate degenerative disc narrowing. There is mild disc bulge with moderate facet arthropathy. No central canal stenosis or neural foraminal narrowing. At L2-L3, there is advanced degenerative disc narrowing. There is mild disc bulge with moderate facet arthropathy. No central canal stenosis. There is mild bilateral neural foraminal narrowing. L3-L4, there is moderate degenerative disc narrowing. Diffuse disc bulge and advanced facet arthropathy result in severe spinal canal stenosis/thecal sac compression. There is severe bilateral neural foraminal narrowing. At L4-L5, there is advanced degenerative disc narrowing. There is mild disc bulge with moderate to severe facet arthropathy. No spinal canal stenosis. There is severe left neural foraminal narrowing, and mild to moderate right neural foraminal narrowing. At L5-S1, there is diffuse disc bulge with mild facet arthropathy. No central canal stenosis. There is mild to moderate left neural foraminal narrowing, and minimal right neural foraminal narrowing. Paravertebral soft tissues are unremarkable. Impression: Advanced degenerative spondylosis overall, as detailed above, worst at L3-L4. Reviewed, dictated and finalized at [facility]. Impression: Advanced degenerative spondylosis overall, as detailed above, worst at L3-L4.
== END 2025-01-12 10:05 | disposition home or self-care (01) ==
LOC: GOSHIMG 10:05
PROVIDERS: PCP Nurse Practitioner Family; Visit Provider Nurse Practitioner Family
DX: M48.061 Spinal stenosis, lumbar region without neurogenic claudication (principal); M47.896 Other spondylosis, lumbar region
CPT/HCPCS: 72148